=== PATIENT | male | born 1970 | race Caucasian/White ===

== ENCOUNTER 2023-08-29 09:59 | Outpatient (RCR) | payer OTHER, SELFPAY | END 2023-08-29 23:59 | disposition home or self-care (01) | LOC: RPT 09:59 | PROVIDERS: ATTENDING PHYSICIAN Physician Assistant Medical; FAMILY PHYSICIAN Family Medicine | DX: K62.3 Rectal prolapse (principal); M62.89 Other specified disorders of muscle; R15.9 Full incontinence of feces; R15.2 Fecal urgency; Z73.6 Limitation of activities due to disability | CPT/HCPCS: 97163; 97530 ==

== ENCOUNTER 2023-09-26 15:08 | Outpatient (RCR) | payer OTHER, SELFPAY | END 2023-09-26 23:59 | disposition home or self-care (01) | LOC: RPT 15:08 | PROVIDERS: ATTENDING PHYSICIAN Physician Assistant Medical; FAMILY PHYSICIAN Family Medicine | DX: K62.3 Rectal prolapse (principal); M62.89 Other specified disorders of muscle; R15.9 Full incontinence of feces; R15.2 Fecal urgency; Z73.6 Limitation of activities due to disability | CPT/HCPCS: 97014; 97112; 97140; 97530 ==

== ENCOUNTER 2023-11-11 13:51 | Outpatient (RCR) | payer OTHER, SELFPAY | END 2023-11-11 23:59 | disposition home or self-care (01) | LOC: RPT 13:51 | PROVIDERS: ATTENDING PHYSICIAN Physician Assistant Medical; FAMILY PHYSICIAN Family Medicine | DX: K62.3 Rectal prolapse (principal); M62.89 Other specified disorders of muscle; R15.9 Full incontinence of feces; R15.2 Fecal urgency; Z73.6 Limitation of activities due to disability | CPT/HCPCS: 97014; 97110; 97112; 97140; 97530 ==

== ENCOUNTER 2023-12-11 19:05 | Outpatient (RCR) | payer OTHER, SELFPAY | END 2023-12-11 23:59 | disposition home or self-care (01) | LOC: RPT 19:05 | PROVIDERS: ATTENDING PHYSICIAN Physician Assistant Medical; FAMILY PHYSICIAN Family Medicine | DX: K62.3 Rectal prolapse (principal); M62.89 Other specified disorders of muscle; R15.9 Full incontinence of feces; R15.2 Fecal urgency; Z73.6 Limitation of activities due to disability | CPT/HCPCS: 97014; 97112; 97140; 97530 ==

== ENCOUNTER 2024-01-06 10:23 | Outpatient (RCR) | payer OTHER, SELFPAY | END 2024-01-06 23:59 | disposition home or self-care (01) | LOC: RPT 10:23 | PROVIDERS: ATTENDING PHYSICIAN Physician Assistant Medical; FAMILY PHYSICIAN Family Medicine | DX: K62.3 Rectal prolapse (principal); M62.89 Other specified disorders of muscle; R15.9 Full incontinence of feces; R15.2 Fecal urgency; Z73.6 Limitation of activities due to disability | CPT/HCPCS: 97014; 97112; 97140; 97530 ==

== ENCOUNTER 2024-02-11 06:21 | Outpatient (RCR) | payer OTHER, SELFPAY | END 2024-02-11 23:59 | disposition home or self-care (01) | LOC: RPT 06:21 | PROVIDERS: ATTENDING PHYSICIAN Physician Assistant Medical; FAMILY PHYSICIAN Family Medicine | DX: K62.3 Rectal prolapse (principal); M62.89 Other specified disorders of muscle; R15.9 Full incontinence of feces; R15.2 Fecal urgency; Z73.6 Limitation of activities due to disability | CPT/HCPCS: 97140; 97164; 97530 ==

== ENCOUNTER 2024-03-10 09:20 | Outpatient (RCR) | payer OTHER, SELFPAY | END 2024-03-10 23:59 | disposition home or self-care (01) | LOC: RPT 09:20 | PROVIDERS: ATTENDING PHYSICIAN Physician Assistant Medical; FAMILY PHYSICIAN Family Medicine | DX: K62.3 Rectal prolapse (principal); M62.89 Other specified disorders of muscle; R15.9 Full incontinence of feces; R15.2 Fecal urgency; Z73.6 Limitation of activities due to disability | CPT/HCPCS: 97140; 97530 ==

== ENCOUNTER 2024-04-14 09:36 | Outpatient (RCR) | payer OTHER, SELFPAY | END 2024-04-14 23:59 | disposition home or self-care (01) | LOC: RPT 09:36 | PROVIDERS: ATTENDING PHYSICIAN Physician Assistant Medical; FAMILY PHYSICIAN Family Medicine | DX: K62.3 Rectal prolapse (principal); M62.89 Other specified disorders of muscle; R15.9 Full incontinence of feces; R15.2 Fecal urgency; Z73.6 Limitation of activities due to disability | CPT/HCPCS: 97112; 97140; 97530 ==

== ENCOUNTER 2024-04-27 09:49 | Outpatient (RCR) | payer OTHER, SELFPAY | END 2024-04-27 23:59 | disposition home or self-care (01) | LOC: RPT 09:49 | PROVIDERS: ATTENDING PHYSICIAN Physician Assistant Medical; FAMILY PHYSICIAN Family Medicine | DX: K62.3 Rectal prolapse (principal); M62.89 Other specified disorders of muscle; R15.9 Full incontinence of feces; R15.2 Fecal urgency; Z73.6 Limitation of activities due to disability | CPT/HCPCS: 97530 ==

== ENCOUNTER 2024-06-03 14:13 | Outpatient (RCR) | payer OTHER, SELFPAY | END 2024-06-03 23:59 | disposition home or self-care (01) | LOC: RPT 14:13 | PROVIDERS: ATTENDING PHYSICIAN Physician Assistant Medical; FAMILY PHYSICIAN Family Medicine | DX: K62.3 Rectal prolapse (principal); M62.89 Other specified disorders of muscle; R15.9 Full incontinence of feces; R15.2 Fecal urgency; Z73.6 Limitation of activities due to disability | CPT/HCPCS: 97140; 97530 ==